=== PATIENT | female | born 1990 | race African-American/Black ===

== ENCOUNTER 2021-02-14 04:36 | Emergency (ER) | payer OTHER ==
[2021-02-14 04:43] VITALS: BP 139/86; PULSE 90; RESP 24; TEMP 98.3
--- NOTE | 2021-02-14 05:13 | ED ---
ENT HPI - General Chief complaint: ENT Stated complaint: ENT Time Seen by Provider: 02/14/21 04:41 Source: patient Mode of arrival: ambulatory Limitations: no limitations - History of Present Illness Initial comments: Patient's 30-year-old woman with onset of sore throat over past day. No fever or chills. No dysphagia or dysphonia. No dyspnea or cough. Patient states had previous tonsillitis similar to this. MD complaint: sore throat Onset/Timin -: days(s) Location: throat Severity: moderate Quality: burning, aching Consistency: constant Improves with: none Worsens with: swallowing Associated Symptoms: pain with swallowing - Related Data Previous Rx's Medication Instructions Recorded Penicillin V Potassium [Pen Vee K] 500 mg PO QID #28 tablet 02/14/21 Allergies Allergy/AdvReac Type Severity Reaction Status Date / Time No Known Allergies Allergy Verified 02/14/21 04:43 Review of Systems ROS Statement: Those systems with pertinent positive or pertinent negative responses have been documented in the HPI. ROS Other: All systems not noted in ROS Statement are negative. Constitutional: Denies: fever, chills ENT: Reports: throat pain. Denies: ear pain, hearing loss, congestion Respiratory: Denies: cough, dyspnea Cardiovascular: Denies: chest pain Gastrointestinal: Denies: abdominal pain Skin: Denies: rash Neurological: Denies: headache Past Medical History Past Medical History: Thyroid Disorder History of Any Multi-Drug Resistant Organisms: None Reported Past Surgical History: No Surgical Hx Reported Past Psychological History: No Psychological Hx Reported Smoking Status: Current every day smoker Past Alcohol Use History: None Reported Past Drug Use History: None Reported General Exam Limitations: no limitations General appearance: alert, in no apparent distress Head exam: Present: atraumatic, normocephalic Eye exam: Present: normal appearance. Absent: scleral icterus, conjunctival injection ENT exam: Present: mucous membranes moist, TM's normal bilaterally, normal external ear exam Neck exam: Present: normal inspection, full ROM, lymphadenopathy. Absent: tenderness, meningismus Respiratory exam: Present: normal lung sounds bilaterally Cardiovascular Exam: Present: regular rate, normal rhythm, normal heart sounds. Absent: systolic murmur, diastolic murmur, rubs, gallop GI/Abdominal exam: Present: soft. Absent: distended, tenderness, guarding, rebound, rigid, organomegaly, mass Course Vital Signs 02/14/21 04:38 Temperature 98.3 F Pulse Rate 90 Respiratory 24 Rate Blood Pressure 139/86 O2 Sat by Pulse 100 Oximetry Disposition Clinical Impression: Pharyngitis Disposition: HOME SELF-CARE Condition: Good Instructions (If sedation given, give patient instructions): Pharyngitis (ED) Prescriptions: Penicillin V Potassium [Pen Vee K] 500 mg PO QID #28 tablet Is patient prescribed a controlled substance at d/c from ED?: No Referrals: None,Stated [REFERRING] - 1-2 days Bret Sebastian MD [STAFF PHYSICIAN] - 1-2 days
[2021-02-14] MEDS: PENICILLIN VK 500MG STARTER 4 TAB BTL PO STA (05:20)
== END 2021-02-14 05:28 | disposition home or self-care (01) ==
LOC: EC 04:36
DX: J02.9 Acute pharyngitis, unspecified (principal); F17.200 Nicotine dependence, unspecified, uncomplicated
CPT/HCPCS: 99282

== ENCOUNTER 2022-04-27 01:14 | Emergency (ER) | payer OTHER ==
[2022-04-27 01:20] VITALS: TEMP 98.3
[2022-04-27] MEDS ORDERED: SODIUM CHLORIDE 0.9% 1,000 ML IV STA (01:35)
[2022-04-27] MEDS ORDERED: ONDANSETRON ODT 4 MG TAB PO STA (02:13)
[2022-04-27] MEDS ORDERED: ONDANSETRON 4 MG ODT STARTER PACK 2 TAB BTL PO STA (02:13)
[2022-04-27] MEDS ORDERED: CIPROFLOXACIN HCL 500 MG TAB PO STA (02:14)
[2022-04-27] MEDS ORDERED: AZITHROMYCIN 500 MG TAB PO STA (02:22)
--- NOTE | 2022-04-27 02:26 | ED ---
Nausea/Vomiting/Diarrhea HPI - General Chief complaint: Nausea/Vomiting/Diarrhea Stated complaint: Nausea, vomiting, abd pain Time Seen by Provider: 04/27/22 01:35 Source: patient, RN notes reviewed Mode of arrival: ambulatory - History of Present Illness Initial comments: This is a 31-year-old female who presents to the emergency department for nausea, vomiting, diarrhea, and abdominal pain. States that symptoms have been present for 6 days. She was in [place] shortly before these symptoms began and frequently drank the tap water. Her boss told her that this was conta minated and likely why she is experiencing these symptoms. States that the diarrhea has green mucus in it and she is concerned about an infectious process from the tap water. She is unable to sleep due to the symptoms and has not been able to keep down any food or water. Denies any sick contacts. Denies any fevers, chills, sore throat, cough, dyspnea, chest pain, palpitations, back pain, or headaches. MD complaint: nausea, vomiting, diarrhea, abdominal pain Onset/Timin -: days(s) Description of Diarrhea: water, mucous Associated Abdominal Pain: Yes Location: diffuse Quality: cramping, sharp Consistency: constant - Related Data Previous Rx's Medication Instructions Recorded Penicillin V Potassium [Pen Vee K] 500 mg PO QID #28 tablet 02/14/21 Azithromycin [Zithromax] 500 mg PO DAILY 5 Days #5 tab 04/27/22 Ondansetron Odt [Zofran Odt] 4 mg PO Q8HR PRN #15 tab 04/27/22 Allergies Allergy/AdvReac Type Severity Reaction Status Date / Time latex Allergy Anaphylaxis Verified 04/27/22 01:18 Review of Systems ROS Statement: Those systems with pertinent positive or pertinent negative responses have been documented in the HPI. ROS Other: All systems not noted in ROS Statement are negative. Past Medical History Past Medical History: Thyroid Disorder History of Any Multi-Drug Resistant Organisms: None Reported Past Surgical History: No Surgical Hx Reported Additional Past Surgical History / Comment(s): thyroid removed 03/2022 Past Psychological History: No Psychological Hx Reported Smoking Status: Current every day smoker Past Alcohol Use History: None Reported Past Drug Use History: None Reported General Exam General appearance: alert, in no apparent distress Head exam: Present: atraumatic, normocephalic, normal inspection Respiratory exam: Present: normal lung sounds bilaterally. Absent: respiratory distress, wheezes, rales, rhonchi, stridor Cardiovascular Exam: Present: regular rate, normal rhythm, normal heart sounds. Absent: systolic murmur, diastolic murmur, rubs, gallop, clicks GI/Abdominal exam: Present: soft, tenderness (Diffuse), hyperactive bowel sounds. Absent: distended, guarding, rebound, rigid Neurological exam: Present: alert, oriented X3, CN II-XII intact Psychiatric exam: Present: normal affect, normal mood Skin exam: Present: warm, dry, intact, normal color. Absent: rash Course Vital Signs 04/27/22 04/27/22 01:15 02:00 Temperature 98.3 F Pulse Rate 60 88 Respiratory 19 16 Rate Blood Pressure 148/95 134/78 O2 Sat by Pulse 100 98 Oximetry Medical Decision Making - Medical Decision Making This is a 31-year-old female who presents to the emergency department for nausea, vomiting, and diarrhea. She is declining any kind of workup, and states that she has lab work scheduled for tomorrow morning. She is requesting to have an antibiotic to treat what she believes is an infectious diarrhea and to be discharged home. I did strongly advise lab work and IV fluids, and recommended a stool culture before going straight antibiotics. She declined despite my strongest recommendations. I am willing to give her a course of azithromycin to see if that does offer any improvement to her symptoms. She was given the first dose in the emergency department and a prescription for this along with Zofran was provided. Instructed her to avoid any [id number] antidiarrheals, such as Imodium, as this can prolong the illness. She's also advised to remain well- hydrated and slowly advance her diet as tolerated. Return precautions reviewed in depth, the patient is instructed to return to the emergency department with any new, worsening, or concerning symptoms. Patient verbalized understanding. This case was discussed in detail with the attending ED physician. Presentation, findings, and treatment plan discussed in detail as well. Disposition Clinical Impression: Gastroenteritis Disposition: HOME SELF-CARE Instructions (If sedation given, give patient instructions): Traveler's Diarrhea (ED), Gastroenteritis (ED) Additional Instructions: Return to the emergency department with any new, worsening, or concerning symptoms. Take the antibiotic daily for 5 days. The Zofran can be used up to every 8 hours as needed for nausea and vomiting. Make sure that you remain well-hydrated and slowly advance your diet as tolerated. Follow up with your primary care provider in 1-2 days. Prescriptions: Azithromycin [Zithromax] 500 mg PO DAILY 5 Days #5 tab Ondansetron Odt [Zofran Odt] 4 mg PO Q8HR PRN #15 tab PRN Reason: Nausea And Vomiting Is patient prescribed a controlled substance at d/c from ED?: No Referrals: Nonstaff,Physician [Primary Care Provider] - 1-2 days
[2022-04-27 02:35] VITALS: BP 134/78; PULSE 88; RESP 16
== END 2022-04-27 02:35 | disposition home or self-care (01) ==
LOC: EC 01:14
DX: K52.9 Noninfective gastroenteritis and colitis, unspecified (principal); E03.9 Hypothyroidism, unspecified; F17.200 Nicotine dependence, unspecified, uncomplicated; Z79.899 Other long term (current) drug therapy; Z91.040 Latex allergy status
CPT/HCPCS: 99284; S0119